=== PATIENT | female | born 1965 | race African-American/Black ===

== ENCOUNTER → 2017-02-02 | Outpatient (CLI) | payer BC ==
[2015-01-06 15:23] VITALS: BP 136/92
[~2017-02-02] MED LIST: CYCL-331 PO; DIAZ5TAB4 PO; GABA-586 PO; MONT10TA6 PO; OMEP20CA9 PO; TOPI25TA7 PO; TRIA1TAB3 PO
== END | disposition home or self-care (01) ==
LOC: CLNUT 09:48
PROVIDERS: ATTEND Nurse Practitioner Family
DX: Z02.89 Encounter for other administrative examinations (principal)
CPT/HCPCS: 97802